=== PATIENT | male | born 1995 | race Caucasian/White ===

== ENCOUNTER 2017-07-10 19:09 | Emergency (ER) | payer BC, OTHER, SELFPAY ==
[~2017-07-10] VITALS: Ht 177.8 cm; Wt 71.8 kg
[2017-07-10] MEDS ORDERED: OLAN5TAB2 PO (19:11)
[2017-07-10 20:31] LABS: AMPHET/METH SCREEN,URINE NEGATIVE (NEGATIVE); BARBITURATE SCREEN, URINE NEGATIVE (NEGATIVE); BENZODIAZEPINES SCREEN,URINE NEGATIVE (NEGATIVE); CANNABINOID SCREEN,URINE NEGATIVE (NEGATIVE); COCAINE SCREEN,URINE NEGATIVE (NEGATIVE); METHADONE SCREEN, URINE NEGATIVE (NEGATIVE); OPIATE SCREEN,URINE NEGATIVE (NEGATIVE); PHENCYCLIDINE SCREEN,URINE NEGATIVE (NEGATIVE)
[2017-07-10] MEDS: OLANZapine 5 MG TABLET PO ONE ×2 (21:55→22:00)
[2017-07-10 21:56] VITALS: BP 113/79
== END 2017-07-10 22:02 | disposition home or self-care (01) ==
LOC: EMS 19:10
DX: F20.9 Schizophrenia, unspecified (principal); F31.9 Bipolar disorder, unspecified; Z79.899 Other long term (current) drug therapy
CPT/HCPCS: 99285

== ENCOUNTER 2017-07-11 19:03 | Emergency (ER) | payer OTHER ==
[~2017-07-11] VITALS: Ht 177.8 cm; Wt 72.7 kg
[~2017-07-11 19:03] MED LIST: OLAN5TAB2 PO
[2017-07-11 21:54] VITALS: BP 128/64
== END 2017-07-11 22:09 | disposition home or self-care (01) ==
LOC: EMS 19:05
DX: Z00.00 Encounter for general adult medical examination without abnormal findings (principal); Z59.0 Homelessness
CPT/HCPCS: 99281; 99283

== ENCOUNTER 2017-07-16 17:00 | Inpatient (IN) | payer MEDICAID, OTHER ==
[~2017-07-16] VITALS: Ht 170.2 cm; Wt 70.3 kg
[2017-07-16] MEDS ORDERED: ZOLPIDEM TARTRATE 10 MG TABLET PO PRN (19:00)
[2017-07-17] MEDS ORDERED: HALOPERIDOL LACTATE 5 MG/ML VIAL IM ONE (15:00)
[2017-07-17] MEDS ORDERED: LORazepam 2 MG/ML VIAL IM ONE (15:00)
[2017-07-17] MEDS ORDERED: DiphenhydrAMINE HCL 50 MG/ML VIAL IM ONE (15:00)
[2017-07-17 17:07] VITALS: BP 117/96
[2017-07-18 06:26] VITALS: BP 115/62
[2017-07-18 08:36] VITALS: BP 118/68
[2017-07-18] MEDS: HALOPERIDOL 5 MG TABLET PO PRN (09:19)
[2017-07-18] MEDS: LORazepam 2 MG TABLET PO PRN (09:19)
[2017-07-18 16:00] VITALS: BP 109/65
[2017-07-18] MEDS ORDERED: ONDANSETRON HCL 4 MG TABLET PO PRN (21:45)
[2017-07-18] MEDS ORDERED: BACITRACIN 28.4 GM OINTMENT TP PRN (21:45)
[2017-07-18] MEDS ORDERED: MAGNESIUM HYDROXIDE SUSPENSION 30 ML UDCUP PO PRN (21:45)
[2017-07-18] MEDS ORDERED: ALBUTEROL SULFATE HFA 90 MCG/PUFF 8 GM INHALER IH PRN (21:45)
[2017-07-18] MEDS ORDERED: PETROLATUM,WHITE 71 GM JELLY TP PRN (21:45)
[2017-07-18] MEDS ORDERED: IBUPROFEN 600 MG TABLET PO PRN (21:45)
[2017-07-18] MEDS ORDERED: BENZOCAINE/MENTHOL LOZENGE MM PRN (21:45)
[2017-07-18] MEDS ORDERED: ACETAMINOPHEN 325 MG TABLET PO PRN (21:45)
[2017-07-18] MEDS ORDERED: CloNIDine HCL 0.1 MG TABLET PO PRN (21:45)
[2017-07-18] MEDS ORDERED: MAG HYDROX/AL HYDROX/SIMETH ES 30 ML SUSPENSION UDCUP PO PRN (21:45)
[2017-07-18] MEDS ORDERED: LOPERAMIDE HCL 2 MG CAPSULE PO PRN (21:45)
[2017-07-19 06:46] VITALS: BP 111/61
[2017-07-19 08:04] VITALS: BP 113/62
[2017-07-19] MEDS: OMEPRAZOLE 20 MG CAPSULE PO SCH (09:00)
[2017-07-19] MEDS: DOCUSATE SODIUM 100 MG CAPSULE PO SCH (09:00)
[2017-07-19 16:00] VITALS: BP 110/68
[2017-07-19] MEDS: OLANZapine 5 MG TABLET PO SCH (17:00)
[2017-07-20 06:26] VITALS: BP 106/63
[2017-07-20 08:00] VITALS: BP 121/68
[2017-07-20] MEDS: DOCUSATE SODIUM 100 MG CAPSULE PO SCH (08:30)
[2017-07-20] MEDS: OMEPRAZOLE 20 MG CAPSULE PO SCH (08:30)
[2017-07-20] MEDS: OLANZapine 5 MG TABLET PO SCH ×2 (08:31→17:00)
[2017-07-20 16:00] VITALS: BP 110/64
[2017-07-21 06:28] VITALS: BP 103/68
[2017-07-21 08:04] VITALS: BP 115/69
[2017-07-21] MEDS: OLANZapine 5 MG TABLET PO SCH ×2 (09:00→17:00)
[2017-07-21] MEDS: OMEPRAZOLE 20 MG CAPSULE PO SCH (09:00)
[2017-07-21] MEDS: DOCUSATE SODIUM 100 MG CAPSULE PO SCH (09:00)
[2017-07-21 16:05] VITALS: BP 102/60
[2017-07-22 06:35] VITALS: BP 108/69
[2017-07-22 08:11] VITALS: BP 122/71
[2017-07-22] MEDS: OMEPRAZOLE 20 MG CAPSULE PO SCH (08:44)
[2017-07-22] MEDS: DOCUSATE SODIUM 100 MG CAPSULE PO SCH (08:44)
[2017-07-22] MEDS: OLANZapine 5 MG TABLET PO SCH ×2 (08:44→16:13)
[2017-07-22 16:00] VITALS: BP 114/68
[2017-07-23 06:19] VITALS: BP 128/67
[2017-07-23 08:05] VITALS: BP 116/85
[2017-07-23] MEDS: OMEPRAZOLE 20 MG CAPSULE PO SCH (08:36)
[2017-07-23] MEDS: OLANZapine 5 MG TABLET PO SCH ×2 (08:36→17:00)
[2017-07-23] MEDS: DOCUSATE SODIUM 100 MG CAPSULE PO SCH (08:36)
[2017-07-23 16:00] VITALS: BP 112/68
[2017-07-24 06:19] VITALS: BP 108/63
[2017-07-24 08:06] VITALS: BP 131/78
[2017-07-24] MEDS: DOCUSATE SODIUM 100 MG CAPSULE PO SCH (09:00)
[2017-07-24] MEDS: OLANZapine 5 MG TABLET PO SCH ×2 (09:00→17:00)
[2017-07-24] MEDS: OMEPRAZOLE 20 MG CAPSULE PO SCH (09:00)
[2017-07-24 16:00] VITALS: BP 126/64
[2017-07-25 06:02] VITALS: BP 128/88
[2017-07-25 08:00] VITALS: BP 115/72
[2017-07-25] MEDS: DOCUSATE SODIUM 100 MG CAPSULE PO SCH (09:00)
[2017-07-25] MEDS: OMEPRAZOLE 20 MG CAPSULE PO SCH (09:00)
[2017-07-25] MEDS: OLANZapine 5 MG TABLET PO SCH ×2 (09:00→17:16)
[2017-07-25] MEDS ORDERED: HALOPERIDOL LACTATE 5 MG/ML VIAL IM PRN (12:45)
[2017-07-25 16:00] VITALS: BP 130/68
[2017-07-25] MEDS ORDERED: DOCUSATE SODIUM 100 MG CAPSULE PO PRN (19:00)
[2017-07-26 06:38] VITALS: BP 127/65
[2017-07-26 08:19] VITALS: BP 107/61
[2017-07-26] MEDS: OLANZapine 5 MG TABLET PO SCH ×2 (08:59→17:01)
[2017-07-26 16:00] VITALS: BP 118/65
[2017-07-27 06:20] VITALS: BP 109/67
[2017-07-27 08:11] VITALS: BP 124/62
[2017-07-27] MEDS: OLANZapine 5 MG TABLET PO SCH ×2 (08:41→16:53)
[2017-07-27] MEDS: NICOTINE 21 MG/24 HOUR PATCH TD SCH (14:06)
[2017-07-27 16:00] VITALS: BP 110/62
[2017-07-28 02:00] VITALS: BP 115/82
[2017-07-28 08:18] VITALS: BP 101/61
[2017-07-28] MEDS: OLANZapine 5 MG TABLET PO SCH ×2 (08:19→16:24)
[2017-07-28] MEDS: NICOTINE 21 MG/24 HOUR PATCH TD SCH (08:20)
[2017-07-28 16:00] VITALS: BP 123/63
[2017-07-29 00:40] VITALS: BP 119/75
[2017-07-29 08:05] VITALS: BP 111/64
[2017-07-29] MEDS: NICOTINE 21 MG/24 HOUR PATCH TD SCH (08:39)
[2017-07-29] MEDS: OLANZapine 5 MG TABLET PO SCH ×2 (08:39→17:17)
[2017-07-29 16:00] VITALS: BP 107/67
[2017-07-30 02:23] VITALS: BP 114/68
[2017-07-30 08:07] VITALS: BP 109/62
[2017-07-30] MEDS: OLANZapine 5 MG TABLET PO SCH ×2 (08:43→16:44)
[2017-07-30] MEDS: NICOTINE 21 MG/24 HOUR PATCH TD SCH (08:43)
[2017-07-30 16:12] VITALS: BP 112/68
[2017-07-31 03:15] VITALS: BP 118/67
[2017-07-31 08:46] VITALS: BP 112/62
[2017-07-31] MEDS: NICOTINE 21 MG/24 HOUR PATCH TD SCH (09:16)
[2017-07-31] MEDS: OLANZapine 5 MG TABLET PO SCH ×2 (09:16→16:01)
[2017-07-31] MEDS ORDERED: MUPIROCIN CALCIUM 2% 15 GM CREAM TP SCH (11:00)
[2017-07-31 16:00] VITALS: BP 105/65
[2017-08-01 06:21] VITALS: BP 105/65
[2017-08-01 08:05] VITALS: BP 106/58
[2017-08-01] MEDS: OLANZapine 5 MG TABLET PO SCH ×2 (09:00→16:37)
[2017-08-01] MEDS: NICOTINE 21 MG/24 HOUR PATCH TD SCH (09:00)
[2017-08-01 16:01] VITALS: BP 135/71
[2017-08-02 06:33] VITALS: BP 111/62
[2017-08-02 08:03] VITALS: BP 110/55
[2017-08-02] MEDS: OLANZapine 5 MG TABLET PO SCH ×2 (09:11→17:34)
[2017-08-02] MEDS: NICOTINE 21 MG/24 HOUR PATCH TD SCH (09:12)
[2017-08-02 16:06] VITALS: BP 108/70
[2017-08-03 06:23] VITALS: BP 109/63
[2017-08-03 08:01] VITALS: BP 112/62
[2017-08-03] MEDS: OLANZapine 5 MG TABLET PO SCH ×2 (08:46→16:56)
[2017-08-03] MEDS: NICOTINE 21 MG/24 HOUR PATCH TD SCH (08:46)
[2017-08-03 16:00] VITALS: BP 110/65
[2017-08-04 06:07] VITALS: BP 108/64
[2017-08-04 08:17] VITALS: BP 109/56
[2017-08-04] MEDS: NICOTINE 21 MG/24 HOUR PATCH TD SCH (08:21)
[2017-08-04] MEDS: OLANZapine 5 MG TABLET PO SCH ×2 (08:21→17:24)
[2017-08-04 16:00] VITALS: BP 110/68
[2017-08-05 05:12] VITALS: BP 116/70
[2017-08-05 08:11] VITALS: BP 111/60
[2017-08-05] MEDS: OLANZapine 5 MG TABLET PO SCH ×2 (08:18→16:03)
[2017-08-05] MEDS: NICOTINE 21 MG/24 HOUR PATCH TD SCH (08:21)
[2017-08-05 16:02] VITALS: BP 108/65
[2017-08-06 05:54] VITALS: BP 109/67
[2017-08-06 08:05] VITALS: BP 142/65
[2017-08-06] MEDS: OLANZapine 5 MG TABLET PO SCH ×2 (08:21→16:15)
[2017-08-06] MEDS: NICOTINE 21 MG/24 HOUR PATCH TD SCH (08:24)
[2017-08-06 16:17] VITALS: BP 135/75
[2017-08-07 06:18] VITALS: BP 105/69
[2017-08-07 08:02] VITALS: BP 118/64
[2017-08-07] MEDS: OLANZapine 5 MG TABLET PO SCH ×2 (08:32→16:47)
[2017-08-07] MEDS: NICOTINE 21 MG/24 HOUR PATCH TD SCH (08:35)
[2017-08-07 16:00] VITALS: BP 108/64
[2017-08-08 06:48] VITALS: BP 119/71
[2017-08-08 08:01] VITALS: BP 114/62
[2017-08-08] MEDS: NICOTINE 21 MG/24 HOUR PATCH TD SCH (08:57)
[2017-08-08] MEDS: OLANZapine 5 MG TABLET PO SCH ×2 (08:57→16:39)
[2017-08-08 16:00] VITALS: BP 126/70
[2017-08-09 06:33] VITALS: BP 113/72
[2017-08-09 08:00] VITALS: BP 105/62
[2017-08-09] MEDS: NICOTINE 21 MG/24 HOUR PATCH TD SCH (09:27)
[2017-08-09] MEDS: OLANZapine 5 MG TABLET PO SCH ×2 (09:28→17:04)
[2017-08-09 16:32] VITALS: BP 108/63
[2017-08-10 06:14] VITALS: BP 114/68
[2017-08-10 08:02] VITALS: BP 118/66
[2017-08-10] MEDS: OLANZapine 5 MG TABLET PO SCH ×2 (08:20→16:24)
[2017-08-10] MEDS: NICOTINE 21 MG/24 HOUR PATCH TD SCH (08:20)
[2017-08-10 16:00] VITALS: BP 114/68
[2017-08-11 05:56] VITALS: BP 108/71
[2017-08-11 08:08] VITALS: BP 113/62
[2017-08-11] MEDS: OLANZapine 5 MG TABLET PO SCH ×2 (08:44→17:09)
[2017-08-11] MEDS: NICOTINE 21 MG/24 HOUR PATCH TD SCH (08:45)
[2017-08-11 16:00] VITALS: BP 120/73
[2017-08-12 04:18] VITALS: BP 124/71
[2017-08-12] MEDS: NICOTINE 21 MG/24 HOUR PATCH TD SCH (08:22)
[2017-08-12] MEDS: OLANZapine 5 MG TABLET PO SCH ×2 (08:23→17:05)
[2017-08-12 08:26] VITALS: BP 112/62
[2017-08-12 16:00] VITALS: BP 111/64
[2017-08-13 01:17] VITALS: BP 118/69
[2017-08-13 08:04] VITALS: BP 114/65
[2017-08-13] MEDS: OLANZapine 5 MG TABLET PO SCH ×2 (08:55→16:17)
[2017-08-13] MEDS: NICOTINE 21 MG/24 HOUR PATCH TD SCH (09:00)
[2017-08-13 16:18] VITALS: BP 108/61
[2017-08-14 05:18] VITALS: BP 112/66
[2017-08-14 08:15] VITALS: BP 104/43
[2017-08-14] MEDS: NICOTINE 21 MG/24 HOUR PATCH TD SCH (09:04)
[2017-08-14] MEDS: OLANZapine 5 MG TABLET PO SCH ×2 (09:04→16:59)
[2017-08-14 16:00] VITALS: BP 106/65
[2017-08-15 01:05] VITALS: BP 119/73
[2017-08-15 08:00] VITALS: BP 105/64
[2017-08-15] MEDS: OLANZapine 5 MG TABLET PO SCH ×2 (08:42→16:54)
[2017-08-15] MEDS: NICOTINE 21 MG/24 HOUR PATCH TD SCH (08:42)
[2017-08-15 16:00] VITALS: BP 105/62
[2017-08-16 00:12] VITALS: BP 112/73
[2017-08-16 08:06] VITALS: BP 114/60
[2017-08-16 08:09] LABS: BASOPHILS % (AUTO) 0.4 % (0.0-2.0); EOSINOPHILS % (AUTO) 1.8 % (1.0-6.0); HEMATOCRIT 39.9 % (41-53); HEMOGLOBIN 14.1 g/dL (13.5-17.5); LYMPHOCYTES % (AUTO) 25.4 % (22.0-44.0); MEAN CORPUSCULAR HGB CONC 35.2 G/dL (31.0-37.0); MEAN CORPUSCULAR VOLUME 88 fL (80-100); MONOCYTES # (AUTO) 0.6 K/uL (0.1-1.0); MONOCYTES % (AUTO) 8.3 % (2.0-9.0); NEUTROPHILS % (AUTO) 64.1 % (40.0-70.0); PLATELET COUNT (AUTO) 172 K/uL (150-450); RED BLOOD CELL COUNT(AUTO) 4.53 MIL/uL (4.50-5.90); RED CELL DISTRIBUTION WIDTH 12.7 % (11.5-14.5)
[2017-08-16] MEDS: OLANZapine 5 MG TABLET PO SCH ×2 (08:32→16:26)
[2017-08-16] MEDS: NICOTINE 21 MG/24 HOUR PATCH TD SCH (08:32)
[2017-08-16 16:00] VITALS: BP 108/71
[2017-08-17 06:32] VITALS: BP 110/65
[2017-08-17 08:03] VITALS: BP 116/72
[2017-08-17] MEDS: OLANZapine 5 MG TABLET PO SCH ×2 (08:37→16:31)
[2017-08-17] MEDS: NICOTINE 21 MG/24 HOUR PATCH TD SCH (08:38)
[2017-08-17 16:00] VITALS: BP 130/88
[2017-08-17] MEDS ORDERED: TUBERCULIN, PURIFIED PROTEIN DERIVATIVE 5 TU/0.1 ML SYG ID ONE (17:00)
[2017-08-18 05:52] VITALS: BP 118/72
[2017-08-18 08:02] VITALS: BP 117/65
[2017-08-18] MEDS: OLANZapine 5 MG TABLET PO SCH ×2 (08:45→17:24)
[2017-08-18] MEDS: NICOTINE 21 MG/24 HOUR PATCH TD SCH (08:45)
[2017-08-18 16:00] VITALS: BP 111/69
[2017-08-19 06:22] VITALS: BP 108/75
[2017-08-19 08:01] VITALS: BP 120/70
[2017-08-19] MEDS: OLANZapine 5 MG TABLET PO SCH ×2 (08:57→17:21)
[2017-08-19] MEDS: NICOTINE 21 MG/24 HOUR PATCH TD SCH (08:57)
[2017-08-19 16:00] VITALS: BP 125/61
[2017-08-20 06:29] VITALS: BP 126/68
[2017-08-20 08:00] VITALS: BP 115/55
[2017-08-20] MEDS: OLANZapine 5 MG TABLET PO SCH ×2 (08:45→16:08)
[2017-08-20] MEDS: NICOTINE 21 MG/24 HOUR PATCH TD SCH (08:46)
[2017-08-20 16:00] VITALS: BP 133/85
[2017-08-20] MEDS: LORazepam 2 MG TABLET PO PRN (16:08)
[2017-08-20] MEDS: HALOPERIDOL 5 MG TABLET PO PRN (16:08)
[2017-08-21 06:06] VITALS: BP 117/71
[2017-08-21 08:01] VITALS: BP 112/64
[2017-08-21] MEDS: OLANZapine 5 MG TABLET PO SCH ×2 (08:35→16:27)
[2017-08-21] MEDS: NICOTINE 21 MG/24 HOUR PATCH TD SCH (08:35)
[2017-08-21 08:45] LABS: ALANINE AMINOTRANSFERASE 27 U/L (12-78); ALBUMIN 3.7 g/dL (3.4-5.0); ALKALINE PHOSPHATASE 75 U/L (46-116); ANION GAP 4 mmol/L (8-16); ASPARTATE AMINOTRANSFERASE 11 U/L (15-37); BILIRUBIN,TOTAL 0.4 mg/dL (0.1-1.0); CALCIUM, TOTAL 9.4 mg/dL (8.8-10.5); CARBON DIOXIDE 30 mmol/L (22-29); CHLORIDE 104 mmol/L (98-107); CHOL/HDL RATIO 3.6 (4.2-7.3); CHOLESTEROL 131 mg/dL (131-200); CREATININE 1.08 mg/dL (0.60-1.30); GLOMERULAR FILTR. RATE CALC > 60 mL/min (>60); GLUCOSE,RANDOM 94 mg/dL (70-110); HDL CHOLESTEROL 36 mg/dL (40-60); LDL CHOL (CALC.) 66 mg/dL (0-130); PHOSPHORUS 3.3 mg/dL (2.5-4.9); POTASSIUM 4.1 mmol/L (3.5-5.1); SODIUM SERUM 138 mmol/L (136-145); THYROID STIMULATING HORMONE 1.04 uIU/mL (0.36-3.74); TOTAL PROTEIN, SERUM 7.2 g/dL (6.4-8.2); TRIGLYCERIDES 146 mg/dL (15-150); UREA NITROGEN, BLOOD 15 mg/dL (7-18)
[2017-08-21 16:00] VITALS: BP 109/70
[2017-08-22 06:28] VITALS: BP 117/72
[2017-08-22 08:01] VITALS: BP 112/62
[2017-08-22] MEDS: OLANZapine 5 MG TABLET PO SCH (08:09)
[2017-08-22] MEDS: CHOLECALCIFEROL (VIT D3) 1,000 UNITS TABLET PO SCH (08:09)
[2017-08-22] MEDS: NICOTINE 21 MG/24 HOUR PATCH TD SCH (08:09)
[2017-08-22 16:00] VITALS: BP 116/79
[2017-08-22] MEDS: OLANZapine 10 MG TABLET PO SCH (17:27)
[2017-08-23 05:18] VITALS: BP 112/66
[2017-08-23 08:01] VITALS: BP 114/68
[2017-08-23] MEDS: CHOLECALCIFEROL (VIT D3) 1,000 UNITS TABLET PO SCH (08:24)
[2017-08-23] MEDS: NICOTINE 21 MG/24 HOUR PATCH TD SCH (08:25)
[2017-08-23] MEDS: OLANZapine 5 MG TABLET PO SCH (08:28)
[2017-08-23 16:00] VITALS: BP 109/67
[2017-08-23] MEDS: OLANZapine 10 MG TABLET PO SCH (17:35)
[2017-08-24 06:17] VITALS: BP 97/62
[2017-08-24 08:01] VITALS: BP 112/62
[2017-08-24] MEDS: OLANZapine 5 MG TABLET PO SCH (08:59)
[2017-08-24] MEDS: NICOTINE 21 MG/24 HOUR PATCH TD SCH (09:00)
[2017-08-24] MEDS: CHOLECALCIFEROL (VIT D3) 1,000 UNITS TABLET PO SCH (09:00)
[2017-08-24 16:00] VITALS: BP 114/61
[2017-08-24] MEDS: OLANZapine 10 MG TABLET PO SCH (16:49)
[2017-08-25 06:20] VITALS: BP 109/65
[2017-08-25 08:29] VITALS: BP 122/61
[2017-08-25] MEDS: NICOTINE 21 MG/24 HOUR PATCH TD SCH (10:02)
[2017-08-25] MEDS: CHOLECALCIFEROL (VIT D3) 1,000 UNITS TABLET PO SCH (10:02)
[2017-08-25] MEDS: OLANZapine 5 MG TABLET PO SCH (10:02)
[2017-08-25 16:00] VITALS: BP 107/61
[2017-08-25] MEDS: OLANZapine 10 MG TABLET PO SCH (16:47)
[2017-08-26 02:50] VITALS: BP 108/63
[2017-08-26 08:00] VITALS: BP 115/69
[2017-08-26] MEDS: OLANZapine 5 MG TABLET PO SCH (08:53)
[2017-08-26] MEDS: CHOLECALCIFEROL (VIT D3) 1,000 UNITS TABLET PO SCH (08:53)
[2017-08-26] MEDS: NICOTINE 21 MG/24 HOUR PATCH TD SCH (08:53)
[2017-08-26 16:00] VITALS: BP 106/67
[2017-08-26] MEDS: OLANZapine 10 MG TABLET PO SCH (16:59)
[2017-08-27 06:15] VITALS: BP 112/69
[2017-08-27 08:01] VITALS: BP 116/62
[2017-08-27] MEDS: CHOLECALCIFEROL (VIT D3) 1,000 UNITS TABLET PO SCH (09:04)
[2017-08-27] MEDS: OLANZapine 5 MG TABLET PO SCH (09:04)
[2017-08-27] MEDS: NICOTINE 21 MG/24 HOUR PATCH TD SCH (09:08)
[2017-08-27] MEDS: OLANZapine 10 MG TABLET PO SCH (16:06)
[2017-08-27 16:23] VITALS: BP 146/72
[2017-08-28 06:37] VITALS: BP 102/61
[2017-08-28 08:01] VITALS: BP 113/64
[2017-08-28] MEDS: CHOLECALCIFEROL (VIT D3) 1,000 UNITS TABLET PO SCH (09:00)
[2017-08-28] MEDS: OLANZapine 5 MG TABLET PO SCH (09:02)
[2017-08-28] MEDS: NICOTINE 21 MG/24 HOUR PATCH TD SCH (09:02)
[2017-08-28 16:00] VITALS: BP 111/67
[2017-08-28] MEDS: OLANZapine 10 MG TABLET PO SCH (16:46)
[2017-08-29 06:19] VITALS: BP 97/60
[2017-08-29 08:00] VITALS: BP 108/62
[2017-08-29] MEDS: CHOLECALCIFEROL (VIT D3) 1,000 UNITS TABLET PO SCH (09:00)
[2017-08-29] MEDS: OLANZapine 5 MG TABLET PO SCH (09:06)
[2017-08-29] MEDS: NICOTINE 21 MG/24 HOUR PATCH TD SCH (09:06)
[2017-08-29 16:04] VITALS: BP 105/60
[2017-08-29] MEDS: OLANZapine 10 MG TABLET PO SCH (16:23)
[2017-08-30 06:27] VITALS: BP 104/56
[2017-08-30 08:08] VITALS: BP 104/57
[2017-08-30] MEDS: CHOLECALCIFEROL (VIT D3) 1,000 UNITS TABLET PO SCH (08:40)
[2017-08-30] MEDS: NICOTINE 21 MG/24 HOUR PATCH TD SCH (08:44)
[2017-08-30] MEDS: OLANZapine 5 MG TABLET PO SCH (08:44)
[2017-08-30 16:00] VITALS: BP 105/65
[2017-08-30] MEDS: OLANZapine 10 MG TABLET PO SCH (16:52)
[2017-08-31 06:26] VITALS: BP 104/55
[2017-08-31 08:01] VITALS: BP 110/62
[2017-08-31] MEDS: OLANZapine 5 MG TABLET PO SCH (08:02)
[2017-08-31] MEDS: NICOTINE 21 MG/24 HOUR PATCH TD SCH (08:02)
[2017-08-31] MEDS: CHOLECALCIFEROL (VIT D3) 1,000 UNITS TABLET PO SCH (08:02)
[2017-08-31] MEDS ORDERED: VITAD1000 PO (09:21)
[2017-08-31] MEDS ORDERED: OLAN10TA3 PO (09:21)
[2017-08-31] MEDS ORDERED: OLAN5TAB2 PO (09:22)
== END 2017-08-31 13:30 | disposition home or self-care (01) | DRG 750 ==
LOC: EMS 17:02 → B3A 07-17 14:43
PROVIDERS: ADMIT Psychiatry & Neurology Child & Adolescent Psychiatry; ATTEND Psychiatry & Neurology Child & Adolescent Psychiatry
DX: F25.0 Schizoaffective disorder, bipolar type (principal); Z91.14 Patient's other noncompliance with medication regimen; E55.9 Vitamin D deficiency, unspecified; F41.9 Anxiety disorder, unspecified; G47.00 Insomnia, unspecified; K59.00 Constipation, unspecified; Z59.0 Homelessness; Z79.899 Other long term (current) drug therapy; Z56.0 Unemployment, unspecified
CPT/HCPCS: 82306; 83735; 84100; 84443; 87081; 96372; 99285; J1630

== ENCOUNTER 2020-10-15 18:25 | Inpatient (IN) | payer MEDICAID ==
[~2020-10-15] VITALS: Ht 170.2 cm; Wt 68.5 kg
[~2020-10-15 18:25] MED LIST changes: +CHOL100018 PO; +OLAN10TA74 PO; -OLAN5TAB2 PO; +OLAN5TAB52 PO
[2020-10-15] MEDS ORDERED: HALOPERIDOL 5 MG TABLET PO PRN (21:30)
[2020-10-15] MEDS ORDERED: ZOLPIDEM TARTRATE 10 MG TABLET PO PRN (21:30)
[2020-10-15] MEDS ORDERED: LORazepam 2 MG TABLET PO PRN (21:30)
[2020-10-15 21:41] VITALS: BP 113/75
[2020-10-16 07:11] VITALS: BP 117/71
[2020-10-16] MEDS ORDERED: MAG HYDROX/AL HYDROX/SIMETH ES 30 ML SUSPENSION UDCUP PO PRN (07:45)
[2020-10-16] MEDS ORDERED: DOCUSATE SODIUM 100 MG CAPSULE PO PRN (07:45)
[2020-10-16] MEDS ORDERED: ALBUTEROL SULFATE HFA 90 MCG/PUFF 8 GM INHALER IH PRN (07:45)
[2020-10-16] MEDS ORDERED: IBUPROFEN 400 MG TABLET PO PRN (07:45)
[2020-10-16] MEDS ORDERED: LOPERAMIDE HCL 2 MG CAPSULE PO PRN (07:45)
[2020-10-16] MEDS ORDERED: ACETAMINOPHEN 325 MG TABLET PO PRN (07:45)
[2020-10-16] MEDS ORDERED: CloNIDine HCL 0.1 MG TABLET PO PRN (07:45)
[2020-10-16] MEDS ORDERED: MAGNESIUM HYDROXIDE SUSPENSION 30 ML UDCUP PO PRN (07:45)
[2020-10-16] MEDS ORDERED: GuaiFENesin/D-METHORPHAN [SUGAR-FREE] 200-20MG/10 ML SYRUP UDCUP PO PRN (07:45)
[2020-10-16] MEDS ORDERED: PETROLATUM,WHITE 28 GM JELLY TP PRN (07:45)
[2020-10-16] MEDS ORDERED: ONDANSETRON HCL 4 MG TABLET PO PRN (07:45)
[2020-10-16] MEDS: CHOLECALCIFEROL (VIT D3) 1,000 UNITS [25 MCG] TABLET PO SCH (09:00)
[2020-10-16] MEDS: OLANZapine 5 MG TABLET PO SCH (11:00)
[2020-10-16 16:08] VITALS: BP 132/79
[2020-10-16] MEDS: OLANZapine 10 MG TABLET PO SCH (20:45)
[2020-10-17] MEDS: CHOLECALCIFEROL (VIT D3) 1,000 UNITS [25 MCG] TABLET PO SCH (08:38)
[2020-10-17] MEDS: OLANZapine 5 MG TABLET PO SCH (08:38)
[2020-10-17] MEDS: NICOTINE 14 MG/24 HOUR PATCH TD PRN (11:25)
[2020-10-17] MEDS: OLANZapine 10 MG TABLET PO SCH (20:09)
[2020-10-18 07:16] VITALS: BP 110/76
[2020-10-18] MEDS: CHOLECALCIFEROL (VIT D3) 1,000 UNITS [25 MCG] TABLET PO SCH (09:00)
[2020-10-18] MEDS: OLANZapine 5 MG TABLET PO SCH (09:00)
[2020-10-18] MEDS: NICOTINE 14 MG/24 HOUR PATCH TD PRN (09:58)
[2020-10-18 16:06] VITALS: BP 105/66
[2020-10-18] MEDS: OLANZapine 10 MG TABLET PO SCH (20:32)
[2020-10-19 05:47] VITALS: BP 110/72
[2020-10-19 07:34] LABS: BASOPHILS % (AUTO) 0.5 % (0.0-2.0); EOSINOPHILS % (AUTO) 0.9 % (1.0-6.0); HEMATOCRIT 42.3 % (41-53); HEMOGLOBIN 14.2 g/dL (13.5-17.5); LYMPHOCYTES # (AUTO) 1.5 K/uL (1.0-4.8); LYMPHOCYTES % (AUTO) 12.6 % (22.0-44.0); MEAN CORPUSCULAR HEMOGLOBIN 30.9 pg (26.0-34.0); MEAN CORPUSCULAR HGB CONC 33.4 G/dL (31.0-37.0); MEAN CORPUSCULAR VOLUME 92 fL (80-100); MONOCYTES % (AUTO) 8.8 % (2.0-9.0); NEUTROPHILS # (AUTO) 9.1 K/uL (1.8-7.7); NEUTROPHILS % (AUTO) 77.2 % (40.0-70.0); PLATELET COUNT (AUTO) 242 K/uL (150-450); RED BLOOD CELL COUNT(AUTO) 4.58 MIL/uL (4.50-5.90)
[2020-10-19 07:48] LABS: ALBUMIN 3.1 g/dL (3.4-5.0); ANION GAP 9 mmol/L (8-16); CALCIUM, TOTAL 8.4 mg/dL (8.8-10.5); CARBON DIOXIDE 26 mmol/L (22-29); CHLORIDE 105 mmol/L (98-107); CREATININE 0.81 mg/dL (0.60-1.30); GLOMERULAR FILTR. RATE CALC > 60 mL/min (>60); GLUCOSE,RANDOM 86 mg/dL (70-110); SODIUM SERUM 140 mmol/L (136-145); UREA NITROGEN, BLOOD 11 mg/dL (7-18)
[2020-10-19 08:12] VITALS: BP 106/68
[2020-10-19 08:20] LABS: ALANINE AMINOTRANSFERASE 53 U/L (12-78); ALKALINE PHOSPHATASE 89 U/L (46-116); ASPARTATE AMINOTRANSFERASE 21 U/L (15-37); BILIRUBIN,TOTAL 0.2 mg/dL (0.1-1.0); CHOL/HDL RATIO 3.7 (4.2-7.3); CHOLESTEROL 138 mg/dL (131-200); HDL CHOLESTEROL 37 mg/dL (40-60); LDL CHOL (CALC.) 83 mg/dL (0-130); TOTAL PROTEIN, SERUM 6.9 g/dL (6.4-8.2); TRIGLYCERIDES 91 mg/dL (15-150)
[2020-10-19] MEDS: OLANZapine 5 MG TABLET PO SCH (09:00)
[2020-10-19] MEDS: CHOLECALCIFEROL (VIT D3) 1,000 UNITS [25 MCG] TABLET PO SCH (09:00)
[2020-10-19] MEDS: NICOTINE 14 MG/24 HOUR PATCH TD PRN (09:16)
[2020-10-19 16:19] VITALS: BP 101/57
[2020-10-19] MEDS: OLANZapine 10 MG TABLET PO SCH (20:16)
[2020-10-20 06:41] VITALS: BP 110/64
[2020-10-20] MEDS: CHOLECALCIFEROL (VIT D3) 1,000 UNITS [25 MCG] TABLET PO SCH (09:11)
[2020-10-20] MEDS: OLANZapine 5 MG TABLET PO SCH (09:11)
[2020-10-20 09:27] VITALS: BP 111/64
[2020-10-20] MEDS: NICOTINE 14 MG/24 HOUR PATCH TD PRN (10:25)
[2020-10-20 16:14] VITALS: BP 124/72
[2020-10-20] MEDS: OLANZapine 10 MG TABLET PO SCH (20:11)
[2020-10-21 05:57] VITALS: BP 109/67
[2020-10-21] MEDS: CHOLECALCIFEROL (VIT D3) 1,000 UNITS [25 MCG] TABLET PO SCH (08:31)
[2020-10-21] MEDS: OLANZapine 5 MG TABLET PO SCH (08:31)
[2020-10-21 09:20] VITALS: BP 107/64
== END 2020-10-21 20:36 | disposition left against medical advice (07) | DRG 750 ==
LOC: B3A 21:25
DX: F20.0 Paranoid schizophrenia (principal); E55.9 Vitamin D deficiency, unspecified; F15.10 Other stimulant abuse, uncomplicated; G47.00 Insomnia, unspecified; K59.00 Constipation, unspecified; F41.9 Anxiety disorder, unspecified; R00.0 Tachycardia, unspecified; Z79.899 Other long term (current) drug therapy
CPT/HCPCS: 80053; 80061; 83036; 84439; 84443; 85025

== ENCOUNTER 2022-05-06 13:22 | Inpatient (IN) | payer MEDICAID, OTHER ==
[~2022-05-06] VITALS: Ht 177.8 cm; Wt 85.3 kg
[2022-05-06 15:16] LABS: BASOPHILS % (AUTO) 0.5 % (0.0-2.0); EOSINOPHILS % (AUTO) 1.2 % (1.0-6.0); HEMATOCRIT 46.9 % (41-53); HEMOGLOBIN 15.7 g/dL (13.5-17.5); LYMPHOCYTES # (AUTO) 1.6 K/uL (1.0-4.8); LYMPHOCYTES % (AUTO) 13.6 % (22.0-44.0); MEAN CORPUSCULAR HEMOGLOBIN 30.4 pg (26.0-34.0); MEAN CORPUSCULAR HGB CONC 33.4 G/dL (31.0-37.0); MEAN CORPUSCULAR VOLUME 91 fL (80-100); MONOCYTES # (AUTO) 1.1 K/uL (0.1-1.0); MONOCYTES % (AUTO) 9.4 % (2.0-9.0); NEUTROPHILS % (AUTO) 75.3 % (40.0-70.0); PLATELET COUNT (AUTO) 221 K/uL (150-450); RED BLOOD CELL COUNT(AUTO) 5.15 MIL/uL (4.50-5.90); RED CELL DISTRIBUTION WIDTH 13.8 % (11.5-14.5)
[2022-05-06 15:21] LABS: ANION GAP 10 mmol/L (8-16); CARBON DIOXIDE 24 mmol/L (22-29); CHLORIDE 105 mmol/L (98-107); CREATININE 0.92 mg/dL (0.60-1.30); GLOMERULAR FILTR. RATE CALC > 60 mL/min (>60); GLUCOSE,RANDOM 86 mg/dL (70-110); POTASSIUM 3.7 mmol/L (3.5-5.1); SODIUM SERUM 139 mmol/L (136-145); UREA NITROGEN, BLOOD 13 mg/dL (7-18)
[2022-05-06 15:27] LABS: ALANINE AMINOTRANSFERASE 34 U/L (12-78); ALBUMIN 4.3 g/dL (3.4-5.0); ALKALINE PHOSPHATASE 96 U/L (46-116); ASPARTATE AMINOTRANSFERASE 17 U/L (15-37); BILIRUBIN,TOTAL 0.3 mg/dL (0.1-1.0); TOTAL PROTEIN, SERUM 8.1 g/dL (6.4-8.2)
[2022-05-06] MEDS ORDERED: LORazepam 2 MG TABLET PO ONE (17:00)
[2022-05-06] MEDS ORDERED: OLANZapine 5 MG TABLET PO ONE (17:00)
[2022-05-06 18:11] LABS: COVID AG,FIA SOURCE NASAL SWAB
[2022-05-06 18:15] LABS: APPEARANCE,URINE CLEAR (CLEAR); BILIRUBIN,URINE NEGATIVE (NEGATIVE); GLUCOSE, URINE (UA) NEGATIVE (NEGATIVE); KETONES,URINE NEGATIVE (NEGATIVE); LEUKOCYTE ESTERASE ,URINE NEGATIVE (NEGATIVE); NITRATE,URINE NEGATIVE (NEGATIVE); OCCULT BLOOD,URINE NEGATIVE (NEGATIVE); PH,URINE 5.5 (5.0-8.0); PROTEIN,URINE NEGATIVE (NEGATIVE); SPECIFIC GRAVITIY, URINE 1.012 (1.003-1.030); UROBILINOGEN,URINE <=1.0 mg/dL (<=1.0)
[2022-05-06 22:21] VITALS: BP 130/78
[2022-05-06] MEDS ORDERED: INFLUENZA VIRUS VACCINE QVS 2022-23 (6MO+)/PF 60 MCG/0.5 ML SYRINGE IM. ONE (22:30)
[2022-05-07 08:03] VITALS: BP 121/82
[2022-05-07] MEDS: LORazepam 2 MG TABLET PO PRN ×2 (12:16→20:28)
[2022-05-07] MEDS: HALOPERIDOL 5 MG TABLET PO PRN (12:16)
[2022-05-07] MEDS: OLANZapine 10 MG TABLET PO SCH (20:27)
[2022-05-07 20:35] VITALS: BP 104/70
[2022-05-08] MEDS: NICOTINE 14 MG/24 HOUR PATCH TD SCH (08:21)
[2022-05-08] MEDS: OLANZapine 5 MG TABLET PO SCH (08:21)
[2022-05-08] MEDS: OLANZapine 10 MG TABLET PO SCH (20:33)
[2022-05-08 20:37] VITALS: BP 122/80
[2022-05-08] MEDS: LORazepam 2 MG TABLET PO PRN (20:38)
[2022-05-09 08:19] VITALS: BP 118/72
[2022-05-09] MEDS: LORazepam 2 MG TABLET PO PRN ×2 (08:59→17:05)
[2022-05-09] MEDS: OLANZapine 5 MG TABLET PO SCH (08:59)
[2022-05-09] MEDS: NICOTINE 14 MG/24 HOUR PATCH TD SCH (09:01)
[2022-05-09] MEDS: HALOPERIDOL 5 MG TABLET PO PRN (18:09)
[2022-05-09 20:07] VITALS: BP 111/71
[2022-05-09] MEDS: OLANZapine 10 MG TABLET PO SCH (20:18)
[2022-05-09] MEDS: ZOLPIDEM TARTRATE 10 MG TABLET PO PRN (20:18)
[2022-05-10] MEDS: OLANZapine 5 MG TABLET PO SCH (08:05)
[2022-05-10] MEDS: NICOTINE 14 MG/24 HOUR PATCH TD SCH (08:05)
[2022-05-10 08:10] VITALS: BP 118/72
[2022-05-10] MEDS ORDERED: PETROLATUM,WHITE 28 GM JELLY TP PRN (08:30)
[2022-05-10] MEDS ORDERED: ONDANSETRON HCL 4 MG TABLET PO PRN (08:30)
[2022-05-10] MEDS ORDERED: NICOTINE 14 MG/24 HOUR PATCH TD PRN (08:30)
[2022-05-10] MEDS ORDERED: MAG HYDROX/AL HYDROX/SIMETH ES 30 ML SUSPENSION UDCUP PO PRN (08:30)
[2022-05-10] MEDS ORDERED: GuaiFENesin/D-METHORPHAN [SUGAR-FREE] 200-20MG/10 ML SYRUP UDCUP PO PRN (08:30)
[2022-05-10] MEDS ORDERED: LOPERAMIDE HCL 2 MG CAPSULE PO PRN (08:30)
[2022-05-10] MEDS ORDERED: MAGNESIUM HYDROXIDE SUSPENSION 30 ML UDCUP PO PRN (08:30)
[2022-05-10] MEDS ORDERED: ALBUTEROL SULFATE HFA 90 MCG/PUFF 8 GM INHALER IH PRN (08:30)
[2022-05-10] MEDS ORDERED: DOCUSATE SODIUM 100 MG CAPSULE PO PRN (08:30)
[2022-05-10] MEDS ORDERED: CloNIDine HCL 0.1 MG TABLET PO PRN (08:30)
[2022-05-10] MEDS: ACETAMINOPHEN 325 MG TABLET PO PRN (09:07)
[2022-05-10] MEDS: LORazepam 2 MG TABLET PO PRN ×2 (16:31→20:31)
[2022-05-10] MEDS: HALOPERIDOL 5 MG TABLET PO PRN (16:31)
[2022-05-10] MEDS: IBUPROFEN 400 MG TABLET PO PRN (16:32)
[2022-05-10] MEDS: CIPROFLOXACIN HCL 0.3% 2.5 ML OPHTHALMIC SOLUTION AD SCH (17:00)
[2022-05-10 20:16] VITALS: BP 118/90
[2022-05-10] MEDS: OLANZapine 10 MG TABLET PO SCH (20:31)
[2022-05-10] MEDS: ZOLPIDEM TARTRATE 10 MG TABLET PO PRN (20:31)
[2022-05-11 02:42] VITALS: BP 120/80
[2022-05-11] MEDS: IBUPROFEN 400 MG TABLET PO PRN ×3 (02:50→20:17)
[2022-05-11 08:06] VITALS: BP 107/73
[2022-05-11] MEDS: OLANZapine 5 MG TABLET PO SCH (08:21)
[2022-05-11] MEDS: CIPROFLOXACIN HCL 0.3% 2.5 ML OPHTHALMIC SOLUTION AD SCH ×3 (08:21→17:03)
[2022-05-11] MEDS: HALOPERIDOL 5 MG TABLET PO PRN ×3 (08:22→20:15)
[2022-05-11] MEDS: LORazepam 2 MG TABLET PO PRN ×3 (08:22→20:15)
[2022-05-11] MEDS: NICOTINE 14 MG/24 HOUR PATCH TD SCH (09:26)
[2022-05-11] MEDS: ACETAMINOPHEN 325 MG TABLET PO PRN (14:26)
[2022-05-11] MEDS: ZOLPIDEM TARTRATE 10 MG TABLET PO PRN (20:15)
[2022-05-11] MEDS: OLANZapine 10 MG TABLET PO SCH (20:15)
[2022-05-11 20:19] VITALS: BP 118/82
[2022-05-12 03:20] VITALS: BP 124/79
[2022-05-12] MEDS: ACETAMINOPHEN 325 MG TABLET PO PRN (03:20)
[2022-05-12] MEDS: CIPROFLOXACIN HCL 0.3% 2.5 ML OPHTHALMIC SOLUTION AD SCH ×3 (08:14→17:35)
[2022-05-12] MEDS: OLANZapine 5 MG TABLET PO SCH (08:14)
[2022-05-12] MEDS: IBUPROFEN 400 MG TABLET PO PRN ×2 (08:24→17:59)
[2022-05-12] MEDS: NICOTINE 14 MG/24 HOUR PATCH TD SCH (09:24)
[2022-05-12 10:03] VITALS: BP 130/86
[2022-05-12 20:06] VITALS: BP 115/73
[2022-05-12] MEDS: OLANZapine 10 MG TABLET PO SCH (21:24)
[2022-05-12] MEDS: ZOLPIDEM TARTRATE 10 MG TABLET PO PRN (21:24)
[2022-05-13 08:07] VITALS: BP 115/62
[2022-05-13] MEDS: CIPROFLOXACIN HCL 0.3% 2.5 ML OPHTHALMIC SOLUTION AD SCH ×3 (08:24→20:10)
[2022-05-13] MEDS: OLANZapine 5 MG TABLET PO SCH (08:24)
[2022-05-13] MEDS: NICOTINE 14 MG/24 HOUR PATCH TD SCH (08:25)
[2022-05-13] MEDS: IBUPROFEN 400 MG TABLET PO PRN (20:11)
[2022-05-13] MEDS: OLANZapine 10 MG TABLET PO SCH (20:12)
[2022-05-13 20:23] VITALS: BP 139/83
[2022-05-14 08:27] VITALS: BP 129/80
[2022-05-14] MEDS: CIPROFLOXACIN HCL 0.3% 2.5 ML OPHTHALMIC SOLUTION AD SCH ×3 (08:33→17:05)
[2022-05-14] MEDS: OLANZapine 5 MG TABLET PO SCH (08:33)
[2022-05-14] MEDS: NICOTINE 14 MG/24 HOUR PATCH TD SCH (08:34)
[2022-05-14] MEDS: LORazepam 2 MG TABLET PO PRN ×2 (09:01→17:05)
[2022-05-14 12:27] LABS: GLUCOMETER DEV NAME(LOC) POC.BV
[2022-05-14] MEDS: HALOPERIDOL 5 MG TABLET PO PRN (17:05)
[2022-05-14 20:08] VITALS: BP 105/69
[2022-05-14] MEDS: OLANZapine 10 MG TABLET PO SCH (20:42)
[2022-05-15] MEDS: OLANZapine 5 MG TABLET PO SCH (08:14)
[2022-05-15] MEDS: NICOTINE 14 MG/24 HOUR PATCH TD SCH (08:15)
[2022-05-15] MEDS: CIPROFLOXACIN HCL 0.3% 2.5 ML OPHTHALMIC SOLUTION AD SCH ×3 (08:15→16:09)
[2022-05-15 08:25] VITALS: BP 118/72
[2022-05-15] MEDS ORDERED: TraZODone HCL 50 MG TABLET PO PRN (14:00)
[2022-05-15 20:08] VITALS: BP 111/71
[2022-05-15] MEDS: OLANZapine 10 MG TABLET PO SCH (20:56)
[2022-05-16] MEDS: CIPROFLOXACIN HCL 0.3% 2.5 ML OPHTHALMIC SOLUTION AD SCH ×3 (08:13→17:03)
[2022-05-16] MEDS: NICOTINE 14 MG/24 HOUR PATCH TD SCH (08:14)
[2022-05-16] MEDS: OLANZapine 5 MG TABLET PO SCH (08:15)
[2022-05-16 08:17] VITALS: BP 118/74
[2022-05-16] MEDS: HALOPERIDOL 5 MG TABLET PO PRN (17:02)
[2022-05-16] MEDS: HydrOXYzine PAMOATE 50 MG CAPSULE PO PRN ×2 (17:02→23:21)
[2022-05-16 20:09] VITALS: BP 128/66
[2022-05-16] MEDS: OLANZapine 10 MG TABLET PO SCH (20:20)
[2022-05-17] MEDS: OLANZapine 5 MG TABLET PO SCH (08:02)
[2022-05-17] MEDS: NICOTINE 14 MG/24 HOUR PATCH TD SCH (08:02)
[2022-05-17] MEDS: CIPROFLOXACIN HCL 0.3% 2.5 ML OPHTHALMIC SOLUTION AD SCH ×2 (08:03→13:23)
[2022-05-17 08:50] VITALS: BP 138/88
[2022-05-17] MEDS: OLANZapine 10 MG TABLET PO SCH (20:12)
[2022-05-17 20:19] VITALS: BP 132/85
[2022-05-17] MEDS: ACETAMINOPHEN 325 MG TABLET PO PRN (22:18)
[2022-05-18] MEDS: ACETAMINOPHEN 325 MG TABLET PO PRN (06:53)
[2022-05-18 08:35] VITALS: BP 116/70
[2022-05-18] MEDS: OLANZapine 5 MG TABLET PO SCH (11:39)
[2022-05-18] MEDS: NICOTINE 14 MG/24 HOUR PATCH TD SCH (11:39)
[2022-05-18 20:15] VITALS: BP 126/83
[2022-05-18] MEDS: HydrOXYzine PAMOATE 50 MG CAPSULE PO PRN (20:30)
[2022-05-18] MEDS: OLANZapine 10 MG TABLET PO SCH (20:30)
[2022-05-19] MEDS: NICOTINE 14 MG/24 HOUR PATCH TD SCH (08:04)
[2022-05-19] MEDS: OLANZapine 5 MG TABLET PO SCH (08:13)
[2022-05-19 08:20] VITALS: BP 120/81
[2022-05-19] MEDS ORDERED: OLAN10 PO (10:05)
[2022-05-19] MEDS ORDERED: OLAN5TAB52 PO (10:05)
== END 2022-05-19 16:24 | disposition home or self-care (01) | DRG 750 ==
LOC: EMS 13:26 → B3A 17:35
PROVIDERS: ADMIT Psychiatry & Neurology Child & Adolescent Psychiatry; ATTEND Psychiatry & Neurology Psychiatry
DX: F20.0 Paranoid schizophrenia (principal); R45.851 Suicidal ideations; Z91.199 Patient's noncompliance with other medical treatment and regimen due to unspecified reason; G47.00 Insomnia, unspecified; Z20.822 Contact with and (suspected) exposure to COVID-19; F41.9 Anxiety disorder, unspecified; D72.829 Elevated white blood cell count, unspecified
CPT/HCPCS: 80053; 81003; 85025; 99285; G0480

== ENCOUNTER 2022-07-21 18:33 | Inpatient (IN) | payer MEDICAID, OTHER ==
[~2022-07-21] VITALS: Ht 177.8 cm; Wt 90.9 kg
[~2022-07-21 18:33] MED LIST changes: -CHOL100018 PO; +OLAN10 PO; -OLAN10TA74 PO
[2022-07-21 19:21] LABS: AMPHET/METH SCREEN,URINE NEGATIVE (NEGATIVE); BARBITURATE SCREEN, URINE NEGATIVE (NEGATIVE); BENZODIAZEPINES SCREEN,URINE NEGATIVE (NEGATIVE); CANNABINOID SCREEN,URINE NEGATIVE (NEGATIVE); COCAINE SCREEN,URINE NEGATIVE (NEGATIVE); METHADONE SCREEN, URINE NEGATIVE (NEGATIVE); OPIATE SCREEN,URINE NEGATIVE (NEGATIVE); PHENCYCLIDINE SCREEN,URINE NEGATIVE (NEGATIVE)
[2022-07-21 19:25] LABS: BASOPHILS % (AUTO) 0.3 % (0.0-2.0); EOSINOPHILS % (AUTO) 0.5 % (1.0-6.0); HEMATOCRIT 46.8 % (41-53); HEMOGLOBIN 15.9 g/dL (13.5-17.5); LYMPHOCYTES # (AUTO) 1.7 K/uL (1.0-4.8); LYMPHOCYTES % (AUTO) 13.1 % (22.0-44.0); MEAN CORPUSCULAR HEMOGLOBIN 30.8 pg (26.0-34.0); MEAN CORPUSCULAR VOLUME 91 fL (80-100); MONOCYTES # (AUTO) 0.9 K/uL (0.1-1.0); MONOCYTES % (AUTO) 6.8 % (2.0-9.0); NEUTROPHILS # (AUTO) 10.3 K/uL (1.8-7.7); NEUTROPHILS % (AUTO) 79.3 % (40.0-70.0); PLATELET COUNT (AUTO) 221 K/uL (150-450); RED BLOOD CELL COUNT(AUTO) 5.17 MIL/uL (4.50-5.90); RED CELL DISTRIBUTION WIDTH 12.8 % (11.5-14.5)
[2022-07-21 19:31] LABS: ANION GAP 12 mmol/L (8-16); CALCIUM, TOTAL 9.6 mg/dL (8.8-10.5); CARBON DIOXIDE 26 mmol/L (22-29); CHLORIDE 102 mmol/L (98-107); GLOMERULAR FILTR. RATE CALC > 60 mL/min (>60); GLUCOSE,RANDOM 101 mg/dL (70-110); POTASSIUM 4.1 mmol/L (3.5-5.1); SODIUM SERUM 140 mmol/L (136-145)
[2022-07-21 19:37] LABS: ALANINE AMINOTRANSFERASE 26 U/L (12-78); ALBUMIN 4.4 g/dL (3.4-5.0); ALKALINE PHOSPHATASE 96 U/L (46-116); ASPARTATE AMINOTRANSFERASE 16 U/L (15-37); BILIRUBIN,TOTAL 0.4 mg/dL (0.1-1.0)
[2022-07-21] MEDS ORDERED: LORazepam 2 MG/ML VIAL IM ONE (19:45)
[2022-07-21] MEDS ORDERED: DiphenhydrAMINE HCL 50 MG/ML VIAL IM ONE (19:45)
[2022-07-21] MEDS ORDERED: HALOPERIDOL LACTATE 5 MG/ML VIAL IM ONE (19:45)
[2022-07-21] MEDS ORDERED: LORazepam 2 MG TABLET PO PRN (21:00)
[2022-07-21] MEDS ORDERED: HALOPERIDOL 5 MG TABLET PO PRN (21:00)
[2022-07-21] MEDS ORDERED: ZOLPIDEM TARTRATE 10 MG TABLET PO PRN (21:00)
[2022-07-21 22:35] LABS: COVID AG,FIA SOURCE NASOPHARYNGEAL
[2022-07-22] MEDS ORDERED: MAGNESIUM HYDROXIDE SUSPENSION 30 ML UDCUP PO PRN (14:15)
[2022-07-22] MEDS ORDERED: GuaiFENesin/D-METHORPHAN [SUGAR-FREE] 200-20MG/10 ML SYRUP UDCUP PO PRN (14:15)
[2022-07-22] MEDS ORDERED: CloNIDine HCL 0.1 MG TABLET PO PRN (14:15)
[2022-07-22] MEDS ORDERED: ALBUTEROL SULFATE HFA 90 MCG/PUFF 8 GM INHALER IH PRN (14:15)
[2022-07-22] MEDS ORDERED: ACETAMINOPHEN 325 MG TABLET PO PRN (14:15)
[2022-07-22] MEDS ORDERED: LOPERAMIDE HCL 2 MG CAPSULE PO PRN (14:15)
[2022-07-22] MEDS ORDERED: MAG HYDROX/AL HYDROX/SIMETH ES 30 ML SUSPENSION UDCUP PO PRN (14:15)
[2022-07-22] MEDS ORDERED: ONDANSETRON HCL 4 MG TABLET PO PRN (14:15)
[2022-07-22] MEDS ORDERED: PETROLATUM,WHITE 28 GM JELLY TP PRN (14:15)
[2022-07-22] MEDS ORDERED: DOCUSATE SODIUM 100 MG CAPSULE PO PRN (14:15)
[2022-07-22] MEDS ORDERED: IBUPROFEN 400 MG TABLET PO PRN (14:15)
[2022-07-22 16:58] VITALS: BP 112/67
[2022-07-22 20:14] VITALS: BP 107/60
[2022-07-23 08:52] VITALS: BP 104/60
[2022-07-23] MEDS: NICOTINE 14 MG/24 HOUR PATCH TD PRN (10:29)
[2022-07-23 20:26] VITALS: BP 107/60
[2022-07-23] MEDS ORDERED: OLANZapine 10 MG TABLET PO SCH (21:00)
[2022-07-23] MEDS ORDERED: TraZODone HCL 50 MG TABLET PO SCH (21:00)
[2022-07-24] MEDS: NICOTINE 14 MG/24 HOUR PATCH TD PRN (08:17)
[2022-07-24 08:21] VITALS: BP 99/61
[2022-07-24 08:35] VITALS: BP 91/52
[2022-07-24] MEDS ORDERED: OLANZapine 5 MG TABLET PO SCH (09:00)
== END 2022-07-24 18:35 | disposition left against medical advice (07) | DRG 750 ==
LOC: EMS 18:35 → B3A 07-22 13:06
PROVIDERS: ADMIT Psychiatry & Neurology Psychiatry; ATTEND Psychiatry & Neurology Psychiatry
DX: F20.0 Paranoid schizophrenia (principal); D72.829 Elevated white blood cell count, unspecified; F10.10 Alcohol abuse, uncomplicated; Z20.822 Contact with and (suspected) exposure to COVID-19; F31.9 Bipolar disorder, unspecified; F41.9 Anxiety disorder, unspecified; G47.00 Insomnia, unspecified; F19.10 Other psychoactive substance abuse, uncomplicated; Z53.21 Procedure and treatment not carried out due to patient leaving prior to being seen by health care provider
CPT/HCPCS: 80053; 80307; 85025; 99285; G0480; J1200; J1630; J2060